=== PATIENT | female | born 1965 | race Caucasian/White ===

== ENCOUNTER 2023-09-06 18:47 | Emergency (ER) | payer SELFPAY ==
[~2023-09-06] VITALS: Ht 170.2 cm; Wt 113.4 kg
[2023-09-06] MEDS ORDERED: SODIUM CHLORIDE 0.9% 1000ML 1,000 ML IV STA (19:12)
[2023-09-06] MEDS ORDERED: DIPHENHYDRAMINE HCL INJ 50 MG/ML VIAL IV STA (19:12)
[2023-09-06] MEDS ORDERED: METHYLPREDNISOLONE SOD SUCC 125 MG/2ML VIAL IV STA (19:12)
[2023-09-06] MEDS ORDERED: METOCLOPRAMIDE HCL 10 MG/2ML VIAL IV STA (19:12)
[2023-09-06 19:28] LABS: BASOPHILS # (AUTO) 0.1 (0.0-0.1); BASOPHILS % 0.6 % (0.0-1.0); EOSINOPHILS # (AUTO) 0.2 (0.0-0.4); EOSINOPHILS % 2.2 % (0.0-6.0); HEMATOCRIT 41.6 % (34.2-44.1); HEMOGLOBIN 13.3 g/dL (12.0-16.0); LYMPHOCYTES # (AUTO) 2.5 (1.0-3.2); LYMPHOCYTES % 31.8 % (18.0-39.1); MEAN CORPUSCULAR HEMOGLOBIN 28.5 pg (28-32); MEAN CORPUSCULAR VOLUME 89.1 fL (81-99); MONOCYTES # (AUTO) 0.9 (0.2-0.8); MONOCYTES % 11.6 % (4.4-11.3); NEUTROPHILS # (AUTO) 4.1 (2.1-6.9); NEUTROPHILS % 53.7 % (38.7-80.0); PLATELET COUNT 358 x10e3/uL (140-360); RED BLOOD COUNT 4.67 x10e6/uL (3.6-5.1); RED CELL DISTRIBUTION WIDTH 13.5 % (11.7-14.4); WHITE BLOOD COUNT 7.73 x10e3/uL (4.8-10.8)
[2023-09-06 19:44] LABS: ALBUMIN 3.9 g/dL (3.5-5.0); ANION GAP 11.8 mmol/L (8-16); BILIRUBIN,TOTAL 0.4 mg/dL (0.2-1.2); CALCIUM 9.2 mg/dL (8.4-10.2); CREATININE, SERUM 0.68 mg/dL (0.57-1.11); POTASSIUM 3.8 mmol/L (3.5-5.1); TOTAL PROTEIN 7.7 g/dL (6.5-8.1)
[2023-09-06 19:49] LABS: TROPONIN I 0.019 ng/mL (0-0.300)
[2023-09-06] MEDS ORDERED: IOPAMIDOL 370 MG/ML 100 ML INFUS..BTL INJ ONE (19:59)
[2023-09-06 21:44] VITALS: O2SAT 100
== END 2023-09-06 21:47 | disposition home or self-care (01) ==
LOC: ER 18:54
DX: G43.109 Migraine with aura, not intractable, without status migrainosus (principal); Z11.52 Encounter for screening for COVID-19
CPT/HCPCS: 36415; 70496; 70498; 71045; 80053; 82550; 83690; 83880; 84484; 93005; 85025; 99284; J1200; J2765; J2930; J7030; Q9967; U0002

== ENCOUNTER → 2024-06-17 | Outpatient (REF) | payer OTHER | LOC: CT 11:48 | PROVIDERS: ATTEND Family Medicine | DX: R51.9 Headache, unspecified (principal) | CPT/HCPCS: 70450 ==